=== PATIENT | female | born 1935 | race Caucasian/White ===

== ENCOUNTER → 2020-04-02 12:29 | Outpatient (CLI) | payer MEDICARE, SELFPAY ==
--- NOTE | 2020-04-02 12:50 | CT_ITS ---
PROCEDURE: CT LUMBAR SPINE WO CON CLINICAL HISTORY: ACUTE R SIDED LOW BACK PAIN W/O SCIATICA COMPARISON: No exams were available for comparison TECHNIQUE: Axial images obtained with sagittal and coronal reformats. All CT scans at the facility use one or more dose reduction, viz: automated exposure control, ma/kV adjustment per patient size (including targeted exams where dose is matched to indication, i.e. head), or iterative reconstruction technique. FINDINGS: There is normal alignment. There is multilevel lumbar spondylosis. T11-T12: Degenerative disc disease with endplate hypertrophic change with minimal bulging disc. There is canal narrowing at 9 mm. Bilateral foraminal narrowing noted. T12-L1: Degenerative disc disease. There is partial hemivertebra posteriorly at T12. Minimal bulging disc. Anterior osteophytes. L1-L2: There is wedging of L1 anteriorly with loss of height anteriorly of 40 percent with anterior osteophytes. Small posterior osteophytes also noted with severe degenerative disc disease. The wedging appears chronic in nature. There is bulging disc at this level which is partially ossified somewhat eccentric toward the right with right lateral recess narrowing and moderate bilateral foraminal narrowing. L2-L3: Degenerate disc disease. Anterior and posterior osteophytes at the endplates with bulging disc/disc osteophyte complex with bilateral lateral recess and foraminal narrowing. L3-L4: Degenerative disc disease with endplate osteophytes. Subcortical cystic changes are present at the endplates. There is bulging disc with bilateral foraminal narrowing L4-5: Degenerative disc disease with bulging disc. Gas density is present along the posterior aspect of the L4-5 interspace and may be due to gas within a protruding or herniated disc. MRI may confirm. This is slightly eccentric toward the left. There has been a prior laminectomy on the left at this level. There is bilateral foraminal narrowing. L5-S1: Degenerate disc disease with bulging disc. There is an epidural stimulator device which enters through the S2-S3 foramen with the tip deep to the left piriform is muscle. No acute fracture or dislocation. No bony destructive process. Incidental note is made of colonic diverticulosis. 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 Please see above for detailed description at each level. Postsurgical changes at L4-5 with gas density posterior to the L4-5 interspace which could be due to gas within a protruding or herniated disc which could be confirmed with MRI if clinically warranted. This is slightly eccentric toward the left Dictated by: Choco Hernandez MD 04/04/2020 12:15 Choco Hernandez MD in [place] 04/04/2020 12:15
== END ==
PROVIDERS: PCP Family Medicine; Visit Provider Family Medicine
DX: M54.5 Low back pain (principal); M47.816 Spondylosis without myelopathy or radiculopathy, lumbar region
CPT/HCPCS: 72131

== ENCOUNTER → 2020-04-17 13:06 | Outpatient (POV) | payer MEDICARE, SELFPAY ==
[2020-04-17 13:23] VITALS: BP 125/74; PULSE 85; RESP 18; TEMP 36.8; O2SAT 98; BMI 27.8
--- NOTE | 2020-04-17 13:59 | [facility].PMCON ---
Assessment and Plan (1) Low back pain Status: Acute Category: Medical Code(s): M54.5 - Low back pain (2) Right hip pain Status: Acute Category: Medical Code(s): M25.551 - Pain in right hip - Assessment and plan all Dx Assessment and Plan for all problems:: The patient is currently undergoing physical therapy and using heat therapies. She is also taking Tylenol arthritis medication. She says she is not having any pain today. We will establish care today and the patient will follow-up in the future if her pain returns. She has been instructed to contact the clinic if she has any concerns before next appointment. The patient and I specifically discussed risk factors for COVID19. These risks include, but are not limited to age greater than 60, heart or lung disease, diabetes, immunosuppression, and travel. We also discussed NSAIDs may worsen COVID19 infection or symptoms. Patient should not use NSAIDs to treat COVID19 signs or symptoms. Patient was also informed that any type of corticosteroid of any form (oral or injection) will decrease the patient's immune system response and may increase the likelihood of COVID19 infection and symptoms[address] Oviedo has reviewed this note and agrees with this plan of care. This note was dictated using voice recognition software and make contain errors or omissions. HPI - Data of Consult Patient: new to practice Requesting Physician: Alice Odom APRN Primary Care Provider: Tu Llamas MD - Consult Narrative Reason for consult: Low back pain radiation into right hip History of present illness: Ms. Bryan is a 84 year old female who presents today for consultation for low back pain on the right side with radiation into her right hip. Patient says the pain has been ongoing for the last couple months. She says the pain is progressively getting worse. She was taking anti-inflammatories in the past but did stop taking the medication due to renal insufficiency. Patient is currently taking Tylenol with arthritis and undergoing physical therapy. Today, the patient says she is not having any pain. She would like to establish care, however, in the event that the pain does return. Patient says she is having tenderness noted over her right low back area. She denies any radicular pain into her legs. Patient says heat does help with the pain. She does have an InterStim and is unable to undergo an MRI. She does have a CT scan of her lumbar spine. CC: Alice Odom APRN [facility] History I have reviewed the patient's past medical history: Yes Medical History: Reports:: Anxiety, Dementia, Depression, Gastroesophageal Reflux Disease(GERD), Hypertension, Urinary Tract Infection Denies:: Cancer, Diabetes Mellitus Type 1, Diabetes Mellitus Type 2, MRSA *Have you ever received a pneumonia vaccine?: Yes *Have you received a flu vaccine this season?: Yes Other Medical History: Reports: Arthritis Laterality Cases: Left: Arthroscopy Knee Other Surgeries: Yes: No Previous Surgery, Cholecystectomy, Colonoscopy, Hysterectomy-Total Amputation: No Fractures: No - *Social History Smoking Status: Unknown if ever smoked Alcohol Intake: never Substance Use Type: denies use *Occupational Status:: retired Housing: house Household Members: other *Travel in the last 8 weeks: None - Psychiatric History Pschychiatric History:: Reports:: Anxiety, Depression Family Hx:: Unable to obtain Review of Systems - Review of Systems Review of Systems General: No recent weight changes, no fever, no sleep disturbances Respiratory: No cough, no shortness of air, no recurring pulmonary infections Cardiovascular/peripheral vascular: No chest pain, no palpitations, no edema, no shortness of breath Gastrointestinal: No new onset incontinence, normal bowel movements reported Genitourinary: No new onset incontinence Musculoskeletal: Right low back pain, right hip pain Psychiatric: Normal mood/affect
== END ==
PROVIDERS: PCP Family Medicine; Visit Provider Clinical Nurse Specialist Family Health
DX: M54.5 Low back pain (principal); M25.551 Pain in right hip
CPT/HCPCS: 99202

== ENCOUNTER → 2021-04-02 14:37 | Outpatient (CLI) | payer MEDICARE, SELFPAY ==
[2021-04-02 15:41] LABS: Basophils # 0.1 K/mm3 (0-0.2); Basophils % 0.8 % (0.1-2.0); Eosinophils # 0.1 K/mm3 (0.0-0.4); Eosinophils % 1.6 % (0.1-12.0); Hematocrit 40.3 % (37.0-47.0); Hemoglobin 12.7 g/dL (12.2-16.2); Lymphocytes # 1.5 K/mm3 (0.7-4.5); Lymphocytes % 18.4 % (10-50); Mean Corpuscular HGB Conc 31.4 g/dL (31.8-35.4); Mean Corpuscular Hemoglobin 32.1 pg (27.0-31.2); Mean Corpuscular Volume 102.3 fl (81-99); Mean Platelet Volume 9.9 fl (7.4-10.4); Monocytes # 0.6 K/mm3 (0.1-1.0); Monocytes % 7.6 % (1.7-9.3); Neutrophils # 5.7 K/mm3 (1.8-7.8); Neutrophils % 71.6 % (37.0-80.0); Platelet Count 232 K/mm3 (142-424); Red Blood Count 3.94 M/mm3 (4.20-5.40)
[2021-04-02 17:19] LABS: Chloride 105 mmol/L (98-107); Sodium 143 mmol/L (136-145)
[2021-04-02 17:20] LABS: Potassium 4.1 mmoL/L (3.5-5.1)
[2021-04-02 17:22] LABS: Alanine Aminotransferase 18 U/L (12-78); Alkaline Phosphatase 69 U/L (38-126); Amylase 59 U/L (30-110); Anion Gap 19.1 mEq/L (5-15); Aspartate Amino Transferase 23 U/L (14-36); Blood Urea Nitrogen 15 mg/dl (7-17); Calcium 9.3 mg/dl (8.4-10.2); Carbon Dioxide 23 mmol/L (22.0-30.0); Estimated Glomerular Filt Rate 39 ml/min (>60); GFR (African American) 47 ML/MIN (>60); Glucose 122 mg/dl (74-100)
[2021-04-02 17:23] LABS: Albumin Level 4.3 g/dl (3.5-5.0); Albumin/Globulin Ratio 1.4 (1.1-1.8); Bilirubin,Total 0.1 mg/dl (0.2-1.3); Lipase 74 U/L (23-300); Total Protein,Serum 7.3 g/dl (6.3-8.2)
== END ==
PROVIDERS: PCP Family Medicine; Visit Provider Nurse Practitioner Family
DX: Z20.822 Contact with and (suspected) exposure to COVID-19 (principal); R11.0 Nausea
CPT/HCPCS: 36415; 80053; 82150; 83690; 85025; C9803; U0003; U0005